=== PATIENT | female | born 1990 | race Caucasian/White ===

== ENCOUNTER 2021-06-23 19:24 | Observation (INO) | payer MEDICAID ==
[~2021-06-23] VITALS: Ht 139.7 cm; Wt 31.6 kg
[2021-06-23 21:43] LABS: BASO % 0.1 % (0.0-2.0); GRAN # 7.5 K/mm3 (1.4-6.5); HEMOGLOBIN 11.5 g/dl (12.5-16.0); LYMPH # 0.9 K/mm3 (1.2-3.4); LYMPH % 10.2 % (20.0-51.0); MEAN CELL VOLUME 78 fl (80.0-100.0); MEAN CORPUSCULAR HEMOGLOBIN 26 pg (27.0-31.0); MEAN CORPUSCULAR HGB CONC 33 g/dl (33.0-37.0); MEAN PLATELET VOLUME 9.8 fl (7.4-10.4); MONO # 0.4 K/mm3 (0.1-0.6); MONO % 4.5 % (1.7-9.3); PLATELET COUNT 210 K/mm3 (130-400); RED BLOOD COUNT 4.49 M/mm3 (4.10-5.30); REDCELL DISTRIBUTION WIDTH-CV 15.1 % (11.5-14.5)
[2021-06-23 21:44] LABS: HEMATOCRIT 34.8 % (37.0-47.0)
[2021-06-23 22:03] LABS: ALBUMIN 4.5 gm/dL (3.5-5.0); BILIRUBIN,TOTAL 0.4 mg/dL (0.2-1.2); CALCIUM 9.4 mg/dL (8.4-10.2); CREATININE, serum 0.78 mg/dL (0.57-1.11); POTASSIUM 3.4 mmol/L (3.5-4.5); TOTAL PROTEIN 8.8 gm/dL (6.2-8.1)
[2021-06-23 22:10] LABS: TROPONIN-I 0.096 ng/mL (0.00-0.033)
[2021-06-24] VITALS (8 sets, daily range): BP systolic 108–125; BP diastolic 70–90; PULSE 89–127; TEMP 98.3–99.3
[2021-06-24 03:02] LABS: C-REACTIVE PROTEIN 4.15 mg/dL (0.00-0.50); MAGNESIUM 1.9 mg/dL (1.6-2.6)
[2021-06-24 03:10] LABS: TROPONIN-I 6 HR POST INITIAL < 0.010 ng/mL (0.00-0.033)
[2021-06-24 07:21] LABS: BASO % 0.2 % (0.0-2.0); GRAN # 5.8 K/mm3 (1.4-6.5); LYMPH # 2.3 K/mm3 (1.2-3.4); LYMPH % 26.6 % (20.0-51.0); MEAN CELL VOLUME 78 fl (80.0-100.0); MEAN CORPUSCULAR HGB CONC 33 g/dl (33.0-37.0); MONO # 0.5 K/mm3 (0.1-0.6); PLATELET COUNT 188 K/mm3 (130-400); RED BLOOD COUNT 3.82 M/mm3 (4.10-5.30); REDCELL DISTRIBUTION WIDTH-CV 15.3 % (11.5-14.5)
[2021-06-24 07:24] LABS: HEMATOCRIT 29.9 % (37.0-47.0); HEMOGLOBIN 9.8 g/dl (12.5-16.0); MEAN CORPUSCULAR HEMOGLOBIN 26 pg (27.0-31.0)
[2021-06-24 07:42] LABS: ALBUMIN 3.6 gm/dL (3.5-5.0); BILIRUBIN,TOTAL 0.3 mg/dL (0.2-1.2); CALCIUM 8.9 mg/dL (8.4-10.2); CREATININE, serum 0.69 mg/dL (0.57-1.11); TOTAL PROTEIN 7.5 gm/dL (6.2-8.1)
--- NOTE | 2021-06-24 15:45 | NUR ---
PT APPEARS TO POSSIBLY BE MALNOURISHED. SHE IS VERY TINY AND FRAIL AND HER TEETH APPEAR VERY UNHEALTHY. SHE TOOK ONLY 2 OR 3 BITES OF LUNCH SAYING SHE "DIDN'T WANT TO PUSH" HERSELF. PT DENIED ANY NAUSEA AND STATED SHE DIDN'T WANT TO EAT TOO MUCH. PT DRINKING FLUIDS, SO PROTEIN SUPPLEMENTS WERE ADMINISTERED. WILBER WITH CELL INSPECTOR NOTIFIED AND REPORTED SHE WOULD FOLLOW UP ON PATIENT'S CASE TOMORROW
--- NOTE | 2021-06-24 18:47 | NUR ---
PT CAME TO FLOOR FROM ED FOR OBSERVATION. PT HAD UNEVENTFUL SHIFT, BUT COMPLAINED OF SOME NAUSEA THIS EVENING. ZOFRAN ADMINISTERED PER MD PRN ORDER. DENIES PAIN. NO NEEDS AT THIS TIME. CALL [facility]IVER IN [place]
--- NOTE | 2021-06-24 20:28 | NUR ---
ALERT AND OX4. DENIES SOA, CHEST PAIN OR DIZZY. CONT TO HAVE NO TASTE OR SMELL. POOR APPEITITE. SIPPING ON SPRITE. LR RUNNING TO RT AC PER ORDERR. TELE MONITORING. LOVENOX FOR VTE. CALL LIGHT WI REACH. PRECAUTIONS MANTAINED. NEEDS MET.
--- NOTE | 2021-06-25 05:42 | NUR ---
RESTED THROUGH THE NIGHT WITHOUT INCIDENT. NEEDS MET.
[2021-06-25 06:39] LABS: BASO % 0.2 % (0.0-2.0); EOS # 0.1 K/mm3 (0.0-0.7); EOS % 0.9 % (0-4.0); GRAN # 3.4 K/mm3 (1.4-6.5); GRAN % 52.8 % (42.2-75.2); LYMPH # 2.5 K/mm3 (1.2-3.4); LYMPH % 37.9 % (20.0-51.0); MEAN CELL VOLUME 79 fl (80.0-100.0); MEAN CORPUSCULAR HGB CONC 32 g/dl (33.0-37.0); MEAN PLATELET VOLUME 10.9 fl (7.4-10.4); MONO # 0.5 K/mm3 (0.1-0.6); PLATELET COUNT 173 K/mm3 (130-400); RED BLOOD COUNT 3.63 M/mm3 (4.10-5.30); REDCELL DISTRIBUTION WIDTH-CV 15.6 % (11.5-14.5)
[2021-06-25 06:40] LABS: HEMATOCRIT 28.5 % (37.0-47.0); HEMOGLOBIN 9.1 g/dl (12.5-16.0); MEAN CORPUSCULAR HEMOGLOBIN 25 pg (27.0-31.0)
[2021-06-25 07:10] LABS: ALBUMIN 3.4 gm/dL (3.5-5.0); BILIRUBIN,TOTAL 0.1 mg/dL (0.2-1.2); CALCIUM 9.3 mg/dL (8.4-10.2); CREATININE, serum 0.66 mg/dL (0.57-1.11); POTASSIUM 3.7 mmol/L (3.5-4.5); TOTAL PROTEIN 6.7 gm/dL (6.2-8.1)
--- NOTE | 2021-06-25 07:30 | NUR ---
Pt is laying in bed, denying any needs at this time. Is A&Ox4, pt is doing her ADLs independently. No other concerns at this time.
[2021-06-25 08:39] VITALS: BP 114/76; PULSE 99; TEMP 98.2
[2021-06-25] MEDS ORDERED: RT Albuterol HFA MDI IH (11:25)
[2021-06-25] MEDS ORDERED: ASPIRIN E.C. 8181 MG PO (11:25)
--- NOTE | 2021-06-25 12:45 | NUR ---
CALLED PATIENT WHO IS GOING TO CALL HER FAMILY FOR A RIDE HOME.
== END 2021-06-25 15:03 | disposition home or self-care (01) ==
LOC: COL.ER 19:24 → MEDICAL 06-24 07:33 → COL.ER 06-24 08:00 → MEDICAL 06-25 15:03
PROVIDERS: Emergency Medicine; Nurse Practitioner Family; ADMIT Student in an Organized Health Care Education/Training Program
DX: U07.1 COVID-19 (principal); R00.0 Tachycardia, unspecified; R79.89 Other specified abnormal findings of blood chemistry; R74.01 Elevation of levels of liver transaminase levels; E87.2 Acidosis; D50.8 Other iron deficiency anemias; E87.6 Hypokalemia; R01.1 Cardiac murmur, unspecified; R64 Cachexia; Z68.1 Body mass index [BMI] 19.9 or less, adult
CPT/HCPCS: 99223-AI; 99232-AI; G0378; J1650; J2405; J7030; J7120; Q9967